=== PATIENT | female | born 1965 | race Caucasian/White ===

== ENCOUNTER 2020-01-21 15:54 | Outpatient (REF) | payer BC, SELFPAY ==
--- NOTE | 2020-01-21 16:01 | MM_ITS ---
EXAMINATION: MM SCREENING DIGITAL BREAST TOMOSYNTHESIS, BILATERAL CLINICAL INFORMATION: Screening. Asymptomatic. The lifetime risk of breast cancer based on the Tyrer-Cuzick Model is 10.5%. COMPARISON: Mammography: October 07, 2016 and studies dating back to May 01, 2012 TECHNIQUE: Digital breast tomosynthesis is performed in both the craniocaudal and mediolateral oblique views along with computer-aided detection (CAD). Synthesized 2D images are generated from the tomosynthesis. FINDINGS: The breasts are heterogeneously dense, which may obscure small masses (ACR BI-RADS breast composition Category c). There are no significant masses, abnormal calcifications, or other abnormalities. MM/MM tomosynthesis screening BI IMPRESSION: There are no significant changes from prior study. ASSESSMENT: BI-RADS 1: Negative RECOMMENDATION: Routine annual mammography screening. This patient's information was entered into a reminder system with a target due date for their next mammogram.
== END 2020-01-21 15:55 | disposition home or self-care (01) ==
LOC: HO.MAMMO 15:54
PROVIDERS: PCP Internal Medicine; Visit Provider Internal Medicine
DX: Z12.31 Encounter for screening mammogram for malignant neoplasm of breast (principal)
CPT/HCPCS: 77063; 77067

== ENCOUNTER 2021-01-22 14:59 | Outpatient (REF) | payer BC, SELFPAY ==
--- NOTE | ~2021-01-22 | MM_ITS ---
EXAMINATION: MM SCREENING DIGITAL BREAST TOMOSYNTHESIS, BILATERAL CLINICAL INFORMATION: Screening. Asymptomatic. The lifetime risk of breast cancer based on the Tyrer-Cuzick Model is 10%. COMPARISON: Mammography: 01/21/2020, 10/07/2016, 08/05/2013 TECHNIQUE: Digital breast tomosynthesis is performed in both the craniocaudal and mediolateral oblique views along with computer-aided detection (CAD). Synthesized 2D images are generated from the tomosynthesis. FINDINGS: There are scattered areas of fibroglandular density (ACR BI-RADS breast composition Category b). Breast tissue composition borders on heterogeneously dense. There is no interval mass or architectural abnormality or developing density. No abnormal calcifications. The axilla and skin contours are unremarkable. No significant changes from prior exams. MM/MM tomosynthesis screening BI IMPRESSION: No mammographic evidence of malignancy. ASSESSMENT: BI-RADS 1: Negative RECOMMENDATION: Routine annual mammography screening. This patient's information was entered into a reminder system with a target due date for their next mammogram.
== END 2021-01-22 15:00 | disposition home or self-care (01) ==
LOC: HO.MAMMO 14:59
PROVIDERS: PCP Internal Medicine; Visit Provider Obstetrics & Gynecology Female Pelvic Medicine and Reconstructive Surgery
DX: Z12.31 Encounter for screening mammogram for malignant neoplasm of breast (principal)
CPT/HCPCS: 77063; 77067

== ENCOUNTER 2021-05-09 16:00 | Outpatient (RCR) | payer BC, SELFPAY ==
--- NOTE | 2021-04-18 18:22 | MHC.PT.EP ---
[facility] [place] Office [place] Office [place] Office [address] [phone] F: [phone] F: [phone] F: [phone] F: [phone] Physical Therapy Plan of Care Date of Evaluation: Date of Surgery: N/A Diagnosis: Low Back Pain, unspecified Assessment: Pt is a motivated, active 55yo F who presents to PT with LBP after increasing her weight with exercises at the gym. She presents today with current impairments in pain, decreased core stability, decreased hip strength, and decreased muscle length. She is limited functionally by sitting on unsupported surface, prolonged standing, running, and hiking. Pt will be seen 1x/week for 5 weeks and will be reassessed at that time. Frequency and Duration: The patient will be seen 1x/week for 5 weeks Short Term Goals: Pt will be I with HEP to promote self management of symptoms. Pt will demonstrate improvements in postural awareness and body mechanics Mcc Goals: Pt will tolerate standing > 1 hour with minimal to no pain to assist with standing functional tasks Pt will return to running > 3 miles with minimal to no pain Pt will demonstrate improvements in functional mobility as evidenced by statistically significant improvement in Modified Oswestry Low Back Pain Questionnaire Treatment Plan: Modalities to reduce pain, spasms and effusion. Manual therapy to restore motion and function. Therapeutic exercise to improve strength and flexibility. Neuromuscular re-education for posture and balance. Therapeutic activities to return to functional activities of daily living. Electronically signed by: Steph Aleman, PT, DPT Please sign and return to therapist. Thank you for your referral.
--- NOTE | 2021-04-18 18:24 | MHC.PT.EP ---
[facility] [place] Office [place] Office [place] Office [address] [phone] F: [phone] F: [phone] F: [phone] F: [phone] Physical Therapy Plan of Care Date of Evaluation: Date of Surgery: N/A Diagnosis: Low Back Pain, unspecified Assessment: Pt is a motivated, active 55yo F who presents to PT with LBP after increasing her weight with exercises at the gym. She presents today with current impairments in pain, decreased core stability, decreased hip strength, and decreased muscle length. She is limited functionally by sitting on unsupported surface, prolonged standing, running, and hiking. She is an excellent candidate for skilled PT in order to address current impairments to facilitate return to PLOF. Pt will be seen 1x/week for 5 weeks and will be reassessed at that time. Frequency and Duration: The patient will be seen 1x/week for 5 weeks Short Term Goals: Pt will be I with HEP to promote self management of symptoms. Pt will demonstrate improvements in postural awareness and body mechanics Stone Finisher Goals: Pt will tolerate standing > 1 hour with minimal to no pain to assist with standing functional tasks Pt will return to running > 3 miles with minimal to no pain Pt will demonstrate improvements in functional mobility as evidenced by statistically significant improvement in Modified Oswestry Low Back Pain Questionnaire Treatment Plan: Modalities to reduce pain, spasms and effusion. Manual therapy to restore motion and function. Therapeutic exercise to improve strength and flexibility. Neuromuscular re-education for posture and balance. Therapeutic activities to return to functional activities of daily living. Electronically signed by: Steph Aleman, PT, DPT Please sign and return to therapist. Thank you for your referral.
--- NOTE | 2021-06-15 14:28 | MHC.PT.DC ---
[facility] [place] Office [place] Office [place] Office [address] [phone] F: [phone] F: [phone] F: [phone] F: [phone] Physical Therapy Discharge Report Diagnosis: Low Back Pain, unspecified Date of Surgery: N/A Date of Evaluation: 04/18/21 Date of Discharge: 06/15/21 Treatments to Date: 4 Cancellations to Date: 2 No Shows to Date: Discharge Status: Discharge Summary: Pt attended PT from 04/18/21-05/09/21. Pt cancelled her last 2 scheduled PT appointments and did not call to reschedule. Pt is being D/C from PT as she has not attended > 30 days. Pt current level of function unknown at this time. Electronically signed by: Steph Aleman, PT, DPT Please sign and return to therapist. Thank you for your referral.
== END 2021-06-15 14:29 | disposition home or self-care (01) ==
LOC: HO.PT 16:00
PROVIDERS: PCP Internal Medicine; Visit Provider Internal Medicine
DX: M54.50 Low back pain, unspecified (principal)
CPT/HCPCS: 97035; 97110; 97140; 97161; 97530

== ENCOUNTER 2022-01-23 15:06 | Outpatient (REF) | payer BC, SELFPAY ==
--- NOTE | ~2022-01-23 | MM_ITS ---
EXAMINATION: MM SCREENING DIGITAL BREAST TOMOSYNTHESIS, BILATERAL CLINICAL INFORMATION: Screening. Asymptomatic. COMPARISON: Mammography: 01/22/2021, 01/21/2020, 10/07/2016 TECHNIQUE: Digital breast tomosynthesis is performed in both the craniocaudal and mediolateral oblique views along with computer-aided detection (CAD). Synthesized 2D images are generated from the tomosynthesis. FINDINGS: There are scattered areas of fibroglandular density (ACR BI-RADS breast composition Category b). There are no significant masses, abnormal calcifications, or other abnormalities. Parenchymal pattern is similar to prior studies and there is no developing density or interval mass or architectural abnormality. There are scattered shifting fibroglandular parenchymal densities related to variation in positioning. The axilla and skin contours are unremarkable. No significant changes. MM/MM tomosynthesis screening BI IMPRESSION: No mammographic evidence of malignancy. ASSESSMENT: BI-RADS 1: Negative RECOMMENDATION: Routine annual mammography screening. This patient's information was entered into a reminder system with a target due date for their next mammogram.
== END 2022-01-23 15:07 | disposition home or self-care (01) ==
LOC: HO.MAMMO 15:06
PROVIDERS: PCP Physician Assistant Medical; Visit Provider Obstetrics & Gynecology Female Pelvic Medicine and Reconstructive Surgery
DX: Z12.31 Encounter for screening mammogram for malignant neoplasm of breast (principal)
CPT/HCPCS: 77063; 77067

== ENCOUNTER 2022-10-14 13:29 | Outpatient (AMB) | payer BC, SELFPAY ==
--- NOTE | 2022-10-14 13:36 | MHC.OFFVIS ---
Intake Vital Signs 10/14/22 13:44 Height 5 ft 4 in Weight 146 lb BMI 25.1 BP 114/65 Blood Pressure Location Lt brachial Position Sitting Pulse 61 Intake Visit Reasons: Colonoscopy consult Intake Note: Patient new consult for 2nd pre colonoscopy screening. Patient cc: between diarrhea and constipation. Denies any other GI issues. Identity Access Management Architect Required: No Accompanied by: Self / Same As Patient Allergies bupropion Allergy (Unknown, Verified 03/26/21 16:36) worsening depression and anxiety Medication List - Last Reconciled 10/14/22 by Bette Sandhu PA-C estradiol 1 mg PO DAILY levothyroxine 125 mcg PO DAILY HPI HPI Comments History of Present Illness Details A 56 y/o female scheduled as a colon screening- however she has had colonoscopy with Dr. Pradhan 2018. She presents today has alternating stool pattern- she has to have random bout of urgent loose stool - for nearly a year -stress triggers it- selling her house-no replacement lb as of yet. She does no increased urgency when exercising/running He blood work and stool studies by pcp she reports-no record avail- ( pending results) She had a normal colonoscopy 2018 Dr. Pradhan. No nausea, vomiting, hematemesis, hematochezia fever chills PFSH Medical History (Updated 10/15/22 @ 11:35 by Bette Sandhu PA-C) Acquired hypothyroidism Constipation Normal colonoscopy (~11/02/18) Overweight (BMI 25.0-29.9) Vitamin D deficiency Surgical History History of section History of ectopic History of removal of cyst Family History Father Lung cancer Prostate cancer CVD (cardiovascular disease) Skin cancer Mother CVD (cardiovascular disease) Diabetes Paternal Grandfather Skin cancer Brother Cancer of kidney Social History (Updated 10/14/22 @ 14:08 by Bette Sandhu PA-C) Household Members Other:: 4 kids Alcohol intake: current Alcohol intake frequency: a few times a week Alcohol type: wine Patient Tobacco Use Status: Former Tobacco user Review of Systems Const All systems reviewed & are unremarkable except as noted in HPI and below Card Denies chest pain and Denies dyspnea Resp Denies dyspnea GI Reports change in bowel habits, Reports constipation and Reports loose stools Physical Exam Vital Signs: Last Vital Signs Pulse 61 10/14/22 13:44 BP 114/65 10/14/22 13:44 BMI result Body Mass Index 25.1 Const General: cooperative, healthy appearing, comfortable, no acute distress and well groomed Orientation/consciousness: patient oriented x3 Limitations: no limitations Resp Effort & Inspection: normal respiratory effort and able to speak in complete sentences Auscultation: clear to auscultation bilaterally and no wheezes Cardio Rate: regular rate Rhythm: regular rhythm Heart sounds: S1 normal heart sound present and S2 normal heart sound present GI Palpation (GI): Soft to palpation and nontender Auscultation: normal bowel sounds Skin General skin exam: other (suntanned) Neuro General: patient oriented x3 Extrem General: Yes full ROM Psych Appearance: grossly normal and well kempt Mental Status: mental status grossly normal Speech and movement: Normal speech and movement present and Clear speech present Affect: normal affect Attitude: cooperative Thought process: Normal thought process present Thought content: Normal thought content present Judgement: Good judgement present (Psych) Results Reviewed Results Reviewed: Previous colonoscopy 2019 Assessment & Plan Assessment & Plan (1) Change in bowel habit: Comment: Somewhat anxious, very pleasant 56-year-old female Past year alternating stool pattern Increased stool urgency loose/with exercise May have functional component / she does have stressors, understandable Code(s): R19.4 - Change in bowel habit Plan: Trial dicyclomine 10 mg q.a.m. may increase to t.i.d. Plan Follow-up progress trial dicyclomine 10 mg Medications: New dicyclomine 10 mg PO TID 90 caps 0RF Patient Instructions: Trial dicyclomine 10 mg q.a.m. may increase to t.i.d. May call with any questions or concerns- Will call with progress Coding Level of Care Code New Pt Level 3 (59253) Diagnoses Change in bowel habit R19.4 Time Spent (min) 30
[2022-10-14 13:44] VITALS: BP 114/65; PULSE 61; BMI 25.1
== END 2022-10-14 14:21 | disposition home or self-care (01) ==
PROVIDERS: PCP Physician Assistant Medical; Visit Provider Physician Assistant
DX: R19.4 Change in bowel habit (principal)
CPT/HCPCS: 99203

== ENCOUNTER → 2022-10-14 13:29 | Outpatient (BNVA) | payer BC, SELFPAY | PROVIDERS: PCP Physician Assistant Medical; Visit Provider Physician Assistant ==

== ENCOUNTER 2023-02-05 15:29 | Outpatient (REF) | payer BC, SELFPAY | END 2023-02-05 15:30 | disposition home or self-care (01) | LOC: HO.MAMMO 15:29 | PROVIDERS: PCP Physician Assistant Medical; Referring Provider Obstetrics & Gynecology Female Pelvic Medicine and Reconstructive Surgery; Visit Provider Physician Assistant Medical | DX: Z12.31 Encounter for screening mammogram for malignant neoplasm of breast (principal) | CPT/HCPCS: 77063; 77067 ==

== ENCOUNTER → 2023-02-05 15:30 | Outpatient (BNV) | payer BC, SELFPAY | PROVIDERS: PCP Physician Assistant Medical; Referring Provider Obstetrics & Gynecology Female Pelvic Medicine and Reconstructive Surgery; Visit Provider Radiology Diagnostic Radiology | DX: Z12.31 Encounter for screening mammogram for malignant neoplasm of breast (principal) | CPT/HCPCS: 77063; 77067 ==

== ENCOUNTER → 2023-06-04 14:52 | Outpatient (REF) | payer BC, SELFPAY ==
--- NOTE | 2023-06-04 14:56 | CA_ITS ---
Transthoracic Echocardiogram Patient (Last, First, Middle): Nimco Banuelos D Gender: Female Date of : 1965 Age: 57 Procedure Date: 06/04/2023 Procedure Type: Transthoracic Echocardiogram Location: OP Height: 162.56 cm Weight: 63.5 kg BSA: 1.68 m2 Heart Rate: bpm BP: 118 / 72 mmHg Shot Packer: TO Referring MD: Sarah JONES Symptoms: LEFT ATRIAL ABNORMALITY. Study Quality: Adequate ECG Rhythm: Sinus Conclusions: - The left ventricular systolic function is normal. The calculated ejection fraction is 64% by biplane method. - No obvious valvular pathology seen on this study. Findings Left Ventricle Normal left ventricular cavity size. There is normal left ventricular wall thickness. The left ventricular systolic function is normal. The calculated ejection fraction is 64% by biplane method. There is no evidence of regional wall motion abnormalities. Diastolic function is normal for age. LV peak GLS -23.4%. Right Ventricle Normal right ventricular cavity size and systolic function. Atria Both atria are normal in size. Aortic Valve The aortic valve was not well visualized. The aortic valve structure and function is likely normal. There is no aortic valve stenosis. There is no aortic valve regurgitation. Mitral Valve The mitral valve appears normal. There is trace mitral valve regurgitation. There is no mitral valve stenosis. Pulmonic Valve The pulmonic valve is likely normal. Tricuspid Valve There is trace tricuspid valve regurgitation. There is no evidence of pulmonary hypertension. Great Vessels The asc aorta is normal in size. Venous The inferior vena cava is normal in size and collapses greater than 50% with inspiration. Pericardium/Pleural There is no evidence of pericardial effusion. Prior Study Comparison No significant change compared to prior study dated: 06/27/2010. Recommendations, Care & Conclusions No obvious valvular pathology seen on this study. Measurements 2D Linear Measurements IVSd: 1.06 0.6-0.9/0.6-1.0 cm LVIDd: 4.34 3.9-5.3/4.2-5.9 cm LVIDd Index: 2.58 2.4-3.2/2.2-3.1 cm/m2 LVIDs: 2.71 2.0-3.6 cm LVPWd: 1.11 0.7-1.1 cm LA Diam: 3.40 2.7-3.8/3.0-4.0 cm LAIDs Index: 2.02 1.5-2.3 cm/m2 LV Mass: 201.91 67-162/88-224 g LV Mass Index: 120.19 43-95/49-115 g/m2 LVOT Diam: 2.00 3.0+(-)1.3 cm 2D Systolic Function EF 4C: 65.00 >55% EF 2C: 65.10 >55% EF BiP: 64.10 >55% Mitral Valve MV VTI: 0.39 MV Pk Lawson: 1.10 MV Mn Lawson: 0.50 MV Pk Grad: 5.00 MV Mn Grad: 1.00 MV Pk E: 0.87 MV PK A: 0.56 MV Decel Time: 183.00 E/A: 1.60 E'Lateral: 9.79 E'Medial: 7.40 E/E' Med: 11.70 E/E' Lat: 8.90 PHT: 54.00 MVA PHT: 4.07 MVA Continuity: 2.26 Decel Webb: 4.74 Aortic Valve AoV Pk Lawson: 1.53 AoV Mn Lawson: 1.04 AoV VTI: 0.36 AoV Pk Grad: 9.00 Aov Mn Grad: 5.00 CHRISTIANA Cont.VTI: 2.42 LVOT LVOT Pk Lawson: 1.13 LVOT Mn Lawson: 0.77 LVOT VTI: 0.28 LVOT Pk Grad: 5.00 LVOT Mn Grad: 3.00 LVOT Diam: 2.00 LVOT Area: 3.14 Diastolic Function MV Pk E: 0.87 MV Pk A: 0.56 E/A: 1.60 E'Medial: 7.40 E/E' Med: 11.70 E' Laterial: 9.79 E/E' Lat: 8.90 Right Ventricle TAPSE (mm): 23.90 TVS' Lawson: 12.60 Tricuspid Valve TR Pk Lawson: 2.20 TR Pk Grad: 19.00 RA Press: 3.00 RVSP: 22.00 Great Vessels Aorta Sinus of Valsalva: 3.11 2.0-3.5 cm Ao Asc: 3.40 2.1-3.4 cm Updated in Other Vendor System with Status of Final Simon Moncada MD electronically signed on 06/05/2023 3:49:18 PM with status of Final
== END ==
LOC: HO.CARD 14:52
PROVIDERS: PCP Nurse Practitioner Family; Visit Provider Nurse Practitioner Family
DX: R94.31 Abnormal electrocardiogram [ECG] [EKG] (principal)
CPT/HCPCS: 93306; 93356

== ENCOUNTER → 2023-06-04 14:56 | Outpatient (BNV) | payer BC, SELFPAY | PROVIDERS: PCP Nurse Practitioner Family; Visit Provider Internal Medicine | DX: I34.0 Nonrheumatic mitral (valve) insufficiency (principal) | CPT/HCPCS: 93306; 93356 ==

== ENCOUNTER 2024-03-19 15:40 | Outpatient (REF) | payer BC, SELFPAY ==
--- NOTE | ~2024-03-19 | MM_ITS ---
EXAMINATION: MM SCREENING DIGITAL BREAST TOMOSYNTHESIS, BILATERAL CLINICAL INFORMATION: Screening. Asymptomatic. COMPARISON: Mammography: Comparison is made with available priors TECHNIQUE: Digital breast mammography with tomosynthesis is performed in both the craniocaudal and mediolateral oblique views along with computer-aided detection (CAD). FINDINGS: The breasts are heterogeneously dense, which may obscure small masses (ACR BI-RADS breast composition Category c). There are no significant masses, abnormal calcifications, or other abnormalities. MM/MM tomosynthesis screening BI IMPRESSION: No mammographic evidence of malignancy. ASSESSMENT: BI-RADS BI-RADS 1 - Negative RECOMMENDATION: Routine annual mammography screening. 1 year F/U This examination should not preclude the clinical evaluation of a suspicious palpable abnormality. This patient's information was entered into a reminder system with a target due date for their next mammogram. Electronically signed by: Heidi Rdz DO 03/28/2024 10:19 AM MARCELLA
== END 2024-03-19 15:41 | disposition home or self-care (01) ==
LOC: HO.MAMMO 15:40
PROVIDERS: PCP Nurse Practitioner Family; Visit Provider Nurse Practitioner Family
DX: Z12.31 Encounter for screening mammogram for malignant neoplasm of breast (principal)
CPT/HCPCS: 77063; 77067

== ENCOUNTER → 2024-03-19 15:45 | Outpatient (BNV) | payer BC, SELFPAY | PROVIDERS: PCP Nurse Practitioner Family; Visit Provider Internal Medicine | DX: Z12.31 Encounter for screening mammogram for malignant neoplasm of breast (principal) | CPT/HCPCS: 77063; 77067 ==

== ENCOUNTER 2024-12-13 11:12 | Day surgery (SDC) | payer BC, SELFPAY ==
--- OUTSIDE RECORDS SUMMARY | 2024-11-05 11:46 | XMS_ITS | Patient Health Record ---
Author Organization [facility] Address [address] [place] [address] Care Team Providers Care Building Serviceman Name Role Phone Raad MONTES, Sarah Primary Care Provider Unavail able Jordan Benton Unavailable [phone] Allergies Allergen (clinical drug ingredient) Drug/Non Drug Allergy documented on EMR Reaction Allergy Type Onset Date Status seasonal (uncoded) Unknown Allergy A ctive Reason For Referral Referring Provider First Name Ninoska Referring Provider Last Name Major Referring Provider Speciality Internal M edicine Referred Organization [facility] Referred Provider Jordan Benton Referred Address [address],[place], [place],[address], Referred Provider Specialty Gastroentero logy General Notes Lorena Norris 2024 04:02:38 PM >REQUESTED AN O BLUE REFERRAL FROM DR DAUGHERTY'S OFFICE FOR VISIT WITH DR BENTON [phone] DX SCREENING COLON Referral Priority Routine Medications Medication SIG (Take, Route, Frequency, Duration) Notes Start Date End Date Status Levothyroxine Sodium 125 MCG 1 tablet on an empty stomach in the morning Orally Once a day Active Estradiol 1 MG 1 tablet Oral Once a day Active Immunizations Vaccine Route Administration Date Status Comme nts Influenza Unknown 11/15/2017 Administered Influenza Unknown 09/22/2024 Refused Social History Tobacco Use: Social History Observation Description Date Details (start date - stop date) Former Smoker NA - NA Tobacco Use/Smoking Question Answer Notes Patient is a former smoker How long has it been since you last smoked? > 10 years Alcohol Screen Question Answer Notes Did you have a drink contain ing alcohol in the past year? Yes How often did you have a dri nk containing alcohol in the past year? 4 or more times a week (4 points) How many drinks did you have on a typical day when you were drinking in the past year? 1 or 2 drinks (0 point) How often did you have 6 or more drinks on one occasion in the past year? Never (0 point) Points 4 Interpretation Positive Section Notes: Nonsmoker; Glass of wine wit h dinner Nonsmoker; Glass of wine wit h dinner Problems Problem Type SNOMED Code ICD Code Onset Dates Problem Status W/U Status Risk Notes Problem Irritable bowel syndrome (02958394) Irritable bowel syndrome (K58.9) Active confirmed Problem 880965806 Encounter for screening for malignant neoplasm of colon (Z12.11) Active confirmed Problem [id number] Pre-procedural examination (Z01.818) Active confirmed Problem Family history of malignant neoplasm of gastrointestinal tract (464677703) Family history of colon cancer in father (Z80.0) Active confirmed Vital Signs Temperature 98.8 degrees Fahrenheit 09/22/2024 Blood pressure diastolic 01 mm Hg 09/22/2024 Height 64 in 09/22/2024 Blood pressure systolic 001 mm Hg 09/22/2024 Weight 150 lbs 09/22/2024 BMI 25.74 kg/m2 09/22/2024 Procedures Procedure Date Ordered Date Performed Result Body Sit e COLONOSCOPY 09/22/2024 N/A Encounters Encounter Location Date Provider Diagnosis [facility] [address] [place] [address] 09/22/2024 Jordan Benton Encounter for screening for malignant neoplasm of colon Z12.11 ; Irritable bowel syndrome K58.9 ; Pre-procedural examination Z01.818 and Family history of colon cancer in father Z80.0 Assessments Encounter Date Diagnosis (ICD Code) Assessment Notes Treatment Notes Treatment Clinical Notes Section Notes 09/22/2024 Irritable bowel syndrome (ICD-10 - K58.9) Overall, Nimco appears quite well. She is not having any new or worrisome GI complaints at this time. Given her family history of her father having had colon cancer and her last colonoscopy being nearly 6 years ago, I did recommend a follow-up colonoscopy for further screening purposes. We did review the rationale for that in regard to colon cancer prevention. Full consent has been obtained for this, including risks of bleeding and perforation. The procedure will be done with monitored anesthesia care. Her irritable bowel syndrome seems to be relatively mild and well-controlled at the present time by diet and exercise. We did discuss that would be the best way to continue to keep things stable. If things were to worsen we could always consider adding a fiber supplement and/or an antispasmodic. However at this point, I do not think that is required based on her clinical history. Nimco was comfortable with this plan. Thank you again for allowing me to participate in Nimco's care. I shall continue to keep you advised of her progress. 09/22/2024 Encounter for screening for malignant neoplasm of colon (ICD-10 - Z12.11) Overall, Nimco appears quite well. She is not having any new or worrisome GI complaints at this time. Given her family history of her father having had colon cancer and her last colonoscopy being nearly 6 years ago, I did recommend a follow-up colonoscopy for further screening purposes. We did review the rationale for that in regard to colon cancer prevention. Full consent has been obtained for this, including risks of bleeding and perforation. The procedure will be done with monitored anesthesia care. Her irritable bowel syndrome seems to be relatively mild and well-controlled at the present time by diet and exercise. We did discuss that would be the best way to continue to keep things stable. If things were to worsen we could always consider adding a fiber supplement and/or an antispasmodic. However at this point, I do not think that is required based on her clinical history. Nimco was comfortable with this plan. Thank you again for allowing me to participate in Nimco's care. I shall continue to keep you advised of her progress. 09/22/2024 Pre-procedural examination (ICD-10 - Z01.818) Overall, Nimco appears quite well. She is not having any new or worrisome GI complaints at this time. Given her family history of her father having had colon cancer and her last colonoscopy being nearly 6 years ago, I did recommend a follow-up colonoscopy for further screening purposes. We did review the rationale for that in regard to colon cancer prevention. Full consent has been obtained for this, including risks of bleeding and perforation. The procedure will be done with monitored anesthesia care. Her irritable bowel syndrome seems to be relatively mild and well-controlled at the present time by diet and exercise. We did discuss that would be the best way to continue to keep things stable. If things were to worsen we could always consider adding a fiber supplement and/or an antispasmodic. However at this point, I do not think that is required based on her clinical history. Nimco was comfortable with this plan. Thank you again for allowing me to participate in Nimco's care. I shall continue to keep you advised of her progress. 09/22/2024 Family history of colon cancer in father (ICD-10 - Z80.0) Overall, Nimco appears quite well. She is not having any new or worrisome GI complaints at this time. Given her family history of her father having had colon cancer and her last colonoscopy being nearly 6 years ago, I did recommend a follow-up colonoscopy for further screening purposes. We did review the rationale for that in regard to colon cancer prevention. Full consent has been obtained for this, including risks of bleeding and perforation. The procedure will be done with monitored anesthesia care. Her irritable bowel syndrome seems to be relatively mild and well-controlled at the present time by diet and exercise. We did discuss that would be the best way to continue to keep things stable. If things were to worsen we could always consider adding a fiber supplement and/or an antispasmodic. However at this point, I do not think that is required based on her clinical history. Nimco was comfortable with this plan. Thank you again for allowing me to participate in Nimco's care. I shall continue to keep you advised of her progress. Plan Of Treatment Pending Test Test Name Order Date COLONOSCOPY 09/22/2024 Future Test Test Name Order Date COLONOSCOPY 06/10/2018 Next Appt Details Provider Name:Jordan Benton , 12/13/2024 12:50:00 PM, [address] [place] [address] , [place], [place], [id number], Insurance Providers Payer Name Payer Address Payer Phone Subscriber Number Group Number Insured Name Patient Relationship to Insured Coverage Start Date Coverage End Date [facility] [address] [place] [address] [id number] FERNIMCO CRANE Self - patient is the insured Medical (General) History Medical History History ICD Code Denies CT,DM,CVA,Lung disease,renal dise ase Hypothyroidism Negative screening colonoscopy in October 2018 Mild irritable bowel syndrome controlled by diet and exercise Surgical History Surgery Date(Month/Year) Brachial cleft cyst Ectopic 1996 x3 1997,1999,2000
--- OUTSIDE RECORDS SUMMARY | 2024-11-05 11:46 | XMS_ITS | Patient Health Record ---
[facility] Address [address] [place] [address] Care Team Providers Care Corrections Caseworker Name Role Phone Sarah Shankar Primary Care Provider Stuart Moraes Unavailable [phone] Allergies Allergen (clinical drug ingredient) Drug/Non Drug Allergy documented on EMR Reaction Allergy Type Onset Date Status Seasonal Allergy (uncoded) Unknown Allergy Active Reason For Referral No Information Medications Medication SIG (Take, Route, Frequency, Duration) Notes Start Date End Date Status Levoxyl Active Estradiol Active Social History Alcohol Screen Question Answer Notes Did you have a drink containing alcohol in the p ast year? Yes Points 0 Interpretation Negative Tobacco use other than smoking: Question Answer Notes Are you an other tobacco user? No Plan Of Treatment Pending Test Test Name Order Date X ray : Foot, left 3V 08/22/2023 X ray : Foot, right 3V 08/22/2023 Insurance Providers Payer Name Payer Address Payer Phone Subscriber Number Group Number Insured Name Patient Relationship to Insured Coverage Start Date Coverage End Date [facility] [address] [place] [address] [phone] [id number] Nimco Banuelos Self - patient is the insured Medical (General) History Medical History History ICD Code Anxiety Arthritis asthma Depression Chicken pox Raynauds syndrome Scarlet fever Thyroid disorder covid-19 Mitral valve prolapse Surgical History Surgery Date(Month/Year) cyst removal eptopic 1996 Brachial cleft section 04/1997,03/1999, 2000
--- NOTE | 2024-12-08 15:16 | HO.ANESPROP2 ---
Documented by User: Donna Cartwright NP 12/08/24 15:16 HPI - Anesthesia Eval Consult details Narrative: 58 yr old female for colonoscopy PMFSH Active Problems Active Problems: All Active Problems Change in bowel habit (Acute) Low back pain (Acute) Constipation (Acute) Overweight (BMI 25.0-29.9) (Acute) Vitamin D deficiency (Acute) Acquired hypothyroidism (Acute) Past Medical History Medical History IBS (irritable bowel syndrome) Normal colonoscopy (~11/02/18) Constipation Overweight (BMI 25.0-29.9) Vitamin D deficiency Acquired hypothyroidism Family History Family History Father Lung cancer Prostate cancer CVD (cardiovascular disease) Skin cancer Mother CVD (cardiovascular disease) Diabetes Paternal Grandfather Skin cancer Brother Cancer of kidney Surgical History Surgical History Hx of wisdom tooth extraction H/O colonoscopy History of removal of cyst History of ectopic History of section Social History Social History Household Members Other:: 4 kids Alcohol intake: current Alcohol intake frequency: a few times a week Alcohol type: wine Patient Tobacco Use Status: Former Tobacco user Use of substances other than those prescribed or required for medical reasons: Yes Substance Use Type Other:: occasional edible--[place] wks ago Are you DNR?: No Advance Directives: No Advance Directives Information Provided: Yes Meds Allergies Allergy/AdvReac Type Severity Reaction Status Date / Time bupropion Allergy Unknown worsening Verified 03/26/21 16:36 depression and anxiety Seasonal Allergies Allergy Unknown Verified 12/09/24 13:02 Home Medications ?Medication ?Instructions ?Recorded ?Confirmed ?Last Taken ?Type estradiol 1 mg tablet 1 mg PO DAILY 03/08/20 12/09/24 Unknown History Documented by User: Mary Hernandez MD 12/13/24 13:38 [facility] Past Medical History Medical History IBS (irritable bowel syndrome) Normal colonoscopy (~11/02/18) Constipation Overweight (BMI 25.0-29.9) Vitamin D deficiency Acquired hypothyroidism Family History Family History Father Lung cancer Prostate cancer CVD (cardiovascular disease) Skin cancer Mother CVD (cardiovascular disease) Diabetes Paternal Grandfather Skin cancer Brother Cancer of kidney Surgical History Surgical History Hx of wisdom tooth extraction H/O colonoscopy History of removal of cyst History of ectopic History of section History of Problems with Anesthesia: No Social History Social History Household Members Other:: 4 kids Alcohol intake: current Alcohol intake frequency: a few times a week Alcohol type: wine Patient Tobacco Use Status: Former Tobacco user Use of substances other than those prescribed or required for medical reasons: Yes Substance Use Type Other:: occasional edible--[place] wks ago Are you DNR?: No Advance Directives: No Advance Directives Information Provided: Yes Meds Allergies Allergy/AdvReac Type Severity Reaction Status Date / Time bupropion Allergy Unknown worsening Verified 03/26/21 16:36 depression and anxiety Seasonal Allergies Allergy Unknown Verified 12/09/24 13:02 Home Medications ?Medication ?Instructions ?Recorded ?Confirmed ?Last Taken ?Type estradiol 1 mg tablet 1 mg PO DAILY 03/08/20 12/09/24 Unknown History Exam Airway Mallampati Class: II TM Dist: >3cm Neck ROM: Full Loose/Missing/Broken Teeth: No Heart: RRR Lungs: CTA Assessment and Plan Assessment Anesthesia Assessment: Anesthesia Plan Discussed and Chart Reviewed Final Anesthetic Review History of Problems with Anesthesia: No NPO: Yes ASA Class: II Final Preanesthetic Review: Meds/Allgs Chart Reviewed, Consent Obtained/Reviewed and Anes Risks/Benef Reviewed Patient Risk: Low Procedure Risk: Low Anesthetic Plan Anesthetic Plan: MAC: Disposition: Standard PACU
[2024-12-09 13:03] VITALS: BMI 25.7
[2024-12-13 11:43] VITALS: BMI 23.7
[2024-12-13 11:47] VITALS: BP 122/80; PULSE 58; RESP 15; TEMP 36.8; O2SAT 99
[2024-12-13] MEDS: Lactated Ringers 1,000 ML 100 ML IVCONT (12:30)
[2024-12-13 14:42] VITALS: BP 125/67; PULSE 76; RESP 18; TEMP 36.2; O2SAT 98
--- NOTE | 2024-12-13 14:46 | P.BOP_ITS ---
Brief Operative Note Date of Service: 12/13/24 Pre-op diagnosis: Screening Post-op diagnosis: other (Colon polyp) Procedure: Colonoscopy to the cecum and TI with bx/removal of polyp Surgeon: Jordan Pradhan MD Anesthesia: MAC Was an Director Compensation used for this Procedure?: No Estimated blood loss (mL): 2.0 Pathology: other (A. Ascending colon polyp) Condition: stable Disposition: PACU
[2024-12-13 14:57] VITALS: BP 116/74; PULSE 61; RESP 17; TEMP 36.4; O2SAT 98
--- NOTE | 2024-12-14 01:58 | OP_ITS ---
DATE OF SERVICE: 12/13/2024 SURGEON: Jordan Pradhan MD INDICATIONS: The patient presents for evaluation of colorectal cancer screening and family history of colon cancer. Full consent obtained from her for this, including risks of bleeding and perforation. PREOPERATIVE DIAGNOSIS: POSTOPERATIVE DIAGNOSIS: PROCEDURE PERFORMED: Colonoscopy of the cecum and terminal ileum with biopsy and removal of polyp. ESTIMATED BLOOD LOSS: COMPLICATIONS: ANESTHESIA: Monitored anesthesia care. ASSISTANTS: SPECIMENS: PREOPERATIVE DIAGNOSES: Colorectal cancer screening and family history of colon. POSTOPERATIVE DIAGNOSES: Colorectal cancer screening, family history of colon, colon polyp, diverticulosis, internal hemorrhoids. DESCRIPTION OF PROCEDURE: The patient was placed in the left lateral decubitus position. The digital rectal exam revealed no abnormalities. The Olympus video pediatric colonoscope was entered into the rectum and advanced easily to the cecum. Once in the cecum, I did identify normal-appearing cecal pouch with appendiceal orifice a normal-appearing ileocecal valve. The terminal ileum was cannulated and appeared normal. The scope was withdrawn back in the colon. The entire cecum and ileocecal valve appeared normal. The appendiceal orifice appeared normal. Scope was slowly withdrawn assessing all mucosal surfaces carefully. Preparation was excellent. In the ascending colon was a flat approximately 3 or 4 mm polyp, which was biopsied and completely removed with cold biopsy forceps. I did not visualize any other polyps, colitis, nor angiodysplasia. There was a mild amount of sigmoid diverticulosis. In the rectum, scope was retroflexed visualizing internal hemorrhoids, but no other pathology. The rectal mucosa appeared normal. Scope was straightened and withdrawn from the patient. She tolerated procedure well and was returned to recovery area in stable condition. IMPRESSION: 1. Small colon polyp. 2. Diverticulosis. 3. Internal hemorrhoids. PLAN: The results of the biopsies will be checked. Even if it is not a tubular adenoma, I would recommend a followup coloscopy in 5 years for further screening given her family history. She will otherwise see me on a p.r.n. basis. Jordan Pradhan MD RMGarrett/JIGNA / [id number]
== END 2024-12-13 15:22 | disposition home or self-care (01) ==
PROVIDERS: PCP Nurse Practitioner Family; Visit Provider Internal Medicine
PROC: 0DJD8ZZ Inspection of Lower Intestinal Tract, Via Natural or Artificial Opening Endoscopic (ICD-10-PCS; CPT 45378; principal; 2024-12-13 12:50)
DX: Z12.11 Encounter for screening for malignant neoplasm of colon (principal); Z80.0 Family history of malignant neoplasm of digestive organs; D12.2 Benign neoplasm of ascending colon; K57.30 Diverticulosis of large intestine without perforation or abscess without bleeding; K64.8 Other hemorrhoids; K58.9 Irritable bowel syndrome, unspecified; E03.9 Hypothyroidism, unspecified; J30.2 Other seasonal allergic rhinitis; Z79.899 Other long term (current) drug therapy; Z88.8 Allergy status to other drugs, medicaments and biological substances; Z98.890 Other specified postprocedural states; Z87.891 Personal history of nicotine dependence
CPT/HCPCS: 45380; 88305; J2250; J2704